=== PATIENT | male | born 1950 | race Caucasian/White ===

== ENCOUNTER 2016-05-06 18:03 | Emergency (ER) | payer OTHER ==
[2016-05-06] MEDS ORDERED: MORPHINE 4 MG/ML SYR ONE (18:45)
== END 2016-05-06 19:39 | disposition home or self-care (01) ==
LOC: ER 18:03
DX: S43.421A Sprain of right rotator cuff capsule, initial encounter (principal); W18.39XA Other fall on same level, initial encounter; Y92.488 Other paved roadways as the place of occurrence of the external cause
CPT/HCPCS: 96372